=== PATIENT | female | born 1990 | race Caucasian/White ===

== ENCOUNTER 2018-01-30 08:11 | Emergency (ER) | payer OTHER ==
[2018-01-30] MEDS ORDERED: ACETAMINOPHEN 500 MG TAB PO ONE (08:26)
--- NOTE | 2018-01-30 08:54 | EDPHY ---
H & P Time Seen by Provider: 01/30/18 08:26 HPI/ROS: CHIEF COMPLAINT: Right ankle sprain HISTORY OF PRESENT ILLNESS: 27-year-old female presents with right ankle sprain. She was walking down stairs this morning and twisted her ankle laterally. Immediate onset of moderate pain and inability to bear weight. No other symptoms. ROS: No numbness, weakness, excessive bleeding, syncopal episode, other injury. Past Medical/Surgical History: Ankle sprains Smoking Status: Never smoked Physical Exam: Alert, pleasant Extremities: Right ankle with swelling over the lateral malleolus. There is no posterior lateral malleolus tenderness, or proximal fifth metatarsal tenderness. Mild tenderness over the midfoot. The ankle is stable and the Achilles tendon is intact. Vascular: Pedal pulses 2+ Neurologic: Ankle and foot with normal sensation and strength Skin: Intact Constitutional: Initial Vital Signs Temperature (C) 36.6 C 01/30/18 08:15 Heart Rate 95 01/30/18 08:15 Respiratory Rate 18 01/30/18 08:15 Blood Pressure 129/74 H 01/30/18 08:15 O2 Sat (%) 94 01/30/18 08:15 O2 Delivery Mode Room Air Allergies/Adverse Reactions: No Known Allergies Allergy (Verified 01/30/18 08:15) Home Medications: Medication Instructions Recorded NK [No Known Home Meds] 01/30/18 Medical Decision Making - Diagnostics Imaging Results: Imaging Impressions Ankle X-Ray 01/30/18 08:25 Impression: 1. Lateral ankle sprain 2. Indeterminate age, nondisplaced avulsion chip off the dorsal navicular. Correlation with symptoms is recommended. - Data Points Medications Given: Discontinued Medications Acetaminophen (Tylenol) 1,000 mg PO EDNOW ONE Stop: 01/30/18 08:27 Last Admin: 01/30/18 08:28 Dose: 1,000 mg Departure - Departure Disposition: Home, Routine, Self-Care Clinical Impression: Right ankle sprain Qualifiers: Encounter type: initial encounter Involved ligament of ankle: unspecified ligament Qualified Code(s): S93.401A - Sprain of unspecified ligament of right ankle, initial encounter Condition: Good Instructions: Ankle Sprain (ED) Additional Instructions: 1. Wear the walking boot or ankle stirrup splint while out of bed until pain free or seen by Orthopedics for follow-up. 2. Take Tylenol 650 mg every 4 hours and/or Ibuprofen 600 mg every 8 hours with food as needed for pain. 3. Apply ice for 30 minutes at a time; 2-3 times per day for the next 1-2 days. 4. Follow up with Orthopedics in 2-4 weeks if symptoms persist or worsening at which time they will evaluate and recommend with you if conservative management versus adjuvant therapy like further imaging is indicated. 5. The x-rays obtained in the emergency department today demonstrate no evidence of an obvious fracture. You have an avulsion fracture of the navicular bone in the midfoot. This is likely an old fracture, since you are not especially tender in this area. However, the fracture may have occurred today. Referrals: Sharmin Nelson MD [Medical Doctor] - As per Instructions
[2018-01-30 09:06] VITALS: BP 112/80
== END 2018-01-30 09:06 | disposition home or self-care (01) ==
DX: S93.401A Sprain of unspecified ligament of right ankle, initial encounter (principal); X50.9XXA Other and unspecified overexertion or strenuous movements or postures, initial encounter; Y99.8 Other external cause status; Y93.01 Activity, walking, marching and hiking

== ENCOUNTER → 2018-05-13 | Outpatient (CLI) | payer OTHER | LOC: FIMAGING 10:12 | PROVIDERS: ATTEND Family Medicine | DX: S69.92XA Unspecified injury of left wrist, hand and finger(s), initial encounter (principal) ==